=== PATIENT | female | born 1990 | race American Indian/Alaskan Native ===

== ENCOUNTER 2017-03-27 12:36 | Emergency (ER) | payer MEDICAID, OTHER ==
[2017-03-27 13:03] VITALS: TEMP 99.1
[2017-03-27 13:15] VITALS: O2SAT 98
--- NOTE | 2017-03-27 13:16 | ED PDOC ---
Arrival/HPI - General Chief Complaint: Medical Clearance Time Seen by Provider: 03/27/17 13:05 Historian: Patient - History of Present Illness Time/Duration: Other (Several months) Symptom Onset: Gradual Symptom Course: Unchanged Severity Level: Moderate Associated Symptoms (Text): 03/27/17 13:13 Patient complains of a several month history of gradually worsening depression. She denies suicidal or homicidal ideation. Denies visual or auditory hallucinations. She has several somatic complaints. She complains of numbness and tingling throughout her body for the last 2 months. She complains of bumps on her tongue and bad breath. She reports that she does not have insurance and that is why she has not had these symptoms evaluated. She states" I want to be checked for everything". She does want to talk with a counselor today. Past Medical History - Infectious Disease Hx of Infectious Diseases: None - Reproductive Menopause: No - Psychiatric Hx Substance Use: No - Anesthesia Hx Anesthesia: No Family/Social History - Physician Review Nursing Documentation Reviewed: Yes Family/Social History: Unknown Family HX Smoking Status: Current Some Days Smoker Hx Alcohol Use: No Hx Substance Use: No Allergies/Home Meds Allergies/Adverse Reactions: Allergies No Known Allergies Allergy (Verified 03/27/17 13:03) Home Medications: Home Meds Medication Instructions Recorded Confirmed No Known Home Med 03/27/17 03/27/17 Review of Systems - Physician Review All systems were reviewed & negative as marked: Yes - Review of Systems Constitutional: Normal Respiratory: Normal Cardiovascular: Normal Gastrointestinal: Normal Genitourinary Female: Normal Neurological: absent: Headache, Dizziness, Focal Weakness Physical Exam Vital Signs Temp Pulse Resp BP Pulse Ox 03/27/17 13:13 99.1 F 97 H 18 100/72 98 03/27/17 12:55 99.1 F 97 H 18 100/72 100 Temperature: Afebrile Blood Pressure: Normal Pulse: Regular Respiratory Rate: Normal Appearance: Positive for: Well-Appearing, Non-Toxic, Comfortable, Other (Obese) Pain Distress: None Mental Status: Positive for: Alert and Oriented X 3 - Systems Exam Head: Present: Atraumatic, Normocephalic Pupils: Present: PERRL Extroacular Muscles: Present: EOMI Conjunctiva: Present: Normal Mouth: Present: Moist Mucous Membranes Pharnyx: No: ERYTHEMA, EXUDATE, TONSILS ENLARGED Neck: Present: Normal Range of Motion Respiratory/Chest: Present: Clear to Auscultation, Good Air Exchange. No: Respiratory Distress, Accessory Muscle Use Cardiovascular: Present: Regular Rate and Rhythm, Normal S1, S2. No: Murmurs Abdomen: Present: Normal Bowel Sounds. No: Tenderness, Distention, Peritoneal Signs Upper Extremity: Present: Normal Inspection. No: Cyanosis, Edema Lower Extremity: Present: Normal Inspection. No: Edema Neurological: Present: GCS=15, CN II-XII Intact, Speech Normal, Motor Func Grossly Intact Skin: Present: Warm, Dry, Normal Color. No: Rashes Psychiatric: Present: Alert, Oriented x 3, Normal Insight, Normal Concentration , Depressed Mood. No: Anxious, Agitated, Suicidal Ideation, Homicidal Ideation , Delusional, Hallucinations, Intoxicated, Lethargic Medical Decision Making ED Course and Treatment: 03/27/17 13:33 EKG shows normal sinus rhythm rate approximately [address] or T-wave changes 03/27/17 14:37 Seen and evaluated by crisis who spoke with the psychiatrist and set up outpatient follow-up. Not suicidal or homicidal or psychotic and does not require psychiatric admission. - Lab Interpretations Lab Results: 03/27/17 14:00 03/27/17 14:00 Lab Results 03/27/17 14:00: Salicylates < 1 L, Acetaminophen < 10.0 L 03/27/17 14:00: Sodium 141, Potassium 4.0, Chloride 106, Carbon Dioxide 26, Anion Gap 13, BUN 12, Creatinine 0.8, Est GFR ( Amer) > 60, Est GFR (Non- Af Amer) > 60, Random Glucose 74, Calcium 9.5, Total Bilirubin 0.4, AST 20, ALT 36, Alkaline Phosphatase 90, Total Protein 7.3, Albumin 4.1, Globulin 3.2, Albumin/Globulin Ratio 1.3 03/27/17 14:00: WBC 6.0, RBC 4.56, Hgb 12.3, Hct 37.2, MCV 81.6, MCH 27.0, MCHC 33.1, RDW 14.4, Plt Count 307, MPV 10.4, Gran % 55.1, Lymph % (Auto) 36.0 H, [place] % (Auto) 7.0 H, Eos % (Auto) 1.7, Baso % (Auto) 0.2, Gran # 3.33, Lymph # 2.2, [place] # 0.4, Eos # 0.1, Baso # 0.01 03/27/17 13:25: Urine Opiates Screen Negative, Urine Methadone Screen Negative, Ur Barbiturates Screen Negative, Ur Phencyclidine Scrn Negative, Ur Amphetamines Screen Negative, U Benzodiazepines Scrn Negative, U Oth Cocaine Metabols Negative, U Cannabinoids Screen Negative 03/27/17 13:25: Urine Color Yellow, Urine Appearance Clear, Urine pH 6.5, Ur Specific [place] 1.020, Urine Protein Negative, Urine Glucose (UA) Negative, Urine Ketones Negative, Urine Blood Negative, Urine Nitrate Negative, Urine Bilirubin Negative, Urine Urobilinogen 0.2, Ur Leukocyte Esterase Negative, Urine HCG, Qual Negative Disposition/Present on Arrival - Present on Arrival Any Indicators Present on Arrival: No History of DVT/PE: No History of Uncontrolled Diabetes: No Urinary Catheter: No History of Decub. Ulcer: No History Surgical Site Infection Following: None - Disposition Have Diagnosis and Disposition been Completed?: Yes Diagnosis: Depression Disposition: HOME/ ROUTINE Disposition Time: 14:37 Patient Plan: Discharge Condition: GOOD Discharge Instructions (ExitCare): Depression (ED) Referrals: PCP,NO [Primary Care Provider] - Follow up with primary [facility] [place] [Outside] - Follow up with primary
[2017-03-27 13:46] LABS: PH,URINE 6.5 (4.7-8.0); URINE BILIRUBIN NEGATIVE (NEGATIVE); URINE BLOOD NEGATIVE (NEGATIVE); URINE GLUCOSE (UA) NEGATIVE (NEGATIVE); URINE KETONE NEGATIVE (NEGATIVE); URINE LEUKOCYTE ESTERASE NEGATIVE Leu/uL (NEGATIVE); URINE PROTEIN NEGATIVE mg/dL (<30 mg/dL); URINE UROBILINOGEN 0.2 E.U./dL (<1 E.U./dL)
[2017-03-27 13:47] LABS: URINE APPEARANCE CLEAR (CLEAR); URINE COLOR YELLOW (YELLOW)
[2017-03-27 14:20] LABS: ADD MANUAL DIFF? NO
[2017-03-27 14:27] LABS: BASO # 0.01 K/mm3 (0.0-2.0); BASO % 0.2 % (0.0-3.0); EOS # 0.1 (0.0-0.7); EOS % 1.7 % (1.5-5.0); GRAN # 3.33 (1.4-6.5); GRAN % 55.1 % (50.0-68.0); HEMATOCRIT 37.2 % (36.0-48.0); LYMPH # 2.2 (1.2-3.4); MEAN CELL VOLUME 81.6 fL (80.0-105.0); MEAN CORPUSCULAR HGB CONC 33.1 g/dl (31.0-37.0); MEAN PLATELET VOLUME 10.4 fl (7.0-11.0); MONO # 0.4 (0.1-0.6); PLATELET COUNT 307 10^3/uL (120.0-450.0); RED CELL DISTRIBUTION WIDTH 14.4 % (11.5-14.5)
[2017-03-27 14:34] LABS: ALB/GLOB RATIO 1.3 (1.1-1.8); ALKALINE PHOSPHATASE 90 U/L (38-133); ALT/SGPT 36 U/L (7-56); AST/SGOT 20 U/L (15-39); BILIRUBIN,TOTAL 0.4 mg/dL (0.2-1.3); BLOOD UREA NITROGEN 12 mg/dL (7-21); CALCIUM 9.5 mg/dL (8.4-10.5); CARBON DIOXIDE 26 mmol/L (21-33); CHLORIDE 106 mmol/L (95-110); GFR AFRICAN-AMERICAN > 60; GLUCOSE,RANDOM 74 mg/dL (70-110); SODIUM 141 mmol/L (132-148); TOTAL PROTEIN 7.3 g/dL (5.8-8.3)
--- NOTE | 2017-03-27 16:09 | CARD ---
APPROVED REPORT EKG Measurement Heart [id number] <Conclusion> Normal sinus rhythm Nonspecific ST abnormality Abnormal ECG
[2017-03-27 16:50] VITALS: BP 102/87; PULSE 90; RESP 16
== END 2017-03-27 15:00 | disposition home or self-care (01) ==
LOC: MERGE 12:36 → ED 12:36
DX: F32.9 Major depressive disorder, single episode, unspecified (principal)
CPT/HCPCS: 80053; 81003; 84703; 85025; 90791; 93005; 99283; G0480